=== PATIENT | male | born 1955 | race Caucasian/White ===

== ENCOUNTER → 2018-11-30 | Outpatient (CLI) | payer OTHER | LOC: BMCIMAGING 11:04 | PROVIDERS: ATTEND Internal Medicine | DX: R91.1 Solitary pulmonary nodule (principal) ==

== ENCOUNTER → 2018-12-05 | Outpatient (CLI) | payer OTHER | LOC: FIMAGING 09:14 | PROVIDERS: ATTEND Internal Medicine | DX: M84.88 Other disorders of continuity of bone, other site (principal); R91.1 Solitary pulmonary nodule; J98.4 Other disorders of lung ==